=== PATIENT | female | born 1990 | race Caucasian/White ===

== ENCOUNTER → 2020-06-03 | Outpatient (CLI) | payer OTHER ==
--- NOTE | 2020-06-04 07:00 | PFTRPT ---
Height: 73.00 Inches Weight: 180.00 Lbs BSA: 2.06 Diagnosis: [id number] DATE OF PROCEDURE: 06/03/2020 ORDERED BY: RASHAD Castellano Spirometry: Pre and post bronchodilator study of excellent technical quality. Forced vital capacity normal. FEV1 out of proportion. Obstructive index is, therefore, reduced. Flow Volume Loop: Expiratory limb of the flow volume loop consistent with significant flow rate limitation. Only borderline bronchodilator response identified, but difficulty with that maneuver is suspected. Lung Volumes: Total lung capacity normal. Residual volume is in proportion. Diffusing Capacity: Diffusing capacity normal. Hemoglobin: Hemoglobin acceptable at 15.1. Airway Mechanics: Airway resistance and conductance are normal. IMPRESSION: Moderate obstructive ventilatory impairment with suspected bronchodilator response. Clinical correlation with the above will be necessary. [facility]
== END ==
LOC: M CARPUL 10:35
PROVIDERS: ATTEND Nurse Practitioner
DX: J45.30 Mild persistent asthma, uncomplicated (principal)

== ENCOUNTER → 2020-06-04 | Outpatient (CLI) | payer OTHER ==
--- NOTE | 2020-06-04 18:02 | REP ---
REASON: Suspect spontaneous . There are no priors for comparison. Transvesical and transvaginal imaging was obtained. The uterus measures 11.2 x 6.9 x 8.1 cm. Within the uterus, there is an anechoic structure with increased echoes surrounding it, consistent with a decidual reaction. Within the gestational sac, there is echogenic material, consistent with a pole, the mean crown-rump length measurement of which is consistent with a 7 week 6 day gestational age. Doppler interrogation of the pole shows no cardiac activity. Inferior and on the right of the gestational sac, there is a 1.9 x 0.9 x 3.1 cm sized area of decreased echoes. The ovaries are within normal limits for size, shape, and echo pattern. The right measures 3.4 x 1.9 x 2.8 cm and left measures 2.7 x 2.6 x 2.2 cm. The right ovarian RI is 0.44 and the left is 0.58. IMPRESSION: There is no evidence of cardiac activity seen in the 7 week 6 day gestational age, as described above. This is consistent with demise. In addition, there is a large subchorionic hemorrhage, as described above. Electronically Signed by Eagle Mcnamara DO 06/05/2020 11:22 A
== END ==
LOC: M RAD 14:37
PROVIDERS: ATTEND Nurse Practitioner Women's Health
DX: O03.9 Complete or unspecified spontaneous abortion without complication (principal)

== ENCOUNTER → 2020-06-24 | Emergency (ER) | payer OTHER ==
[~2020-06-24] MED LIST: ONDANSETRON 4MG/2ML VIAL As Ordered ONE; ONDANSETRON 4MG/2ML VIAL ONE; cefTRIAXone SOD 1GM VIAL (J0696 PER 250MG) As Ordered ONE; cefTRIAXone SOD 1GM VIAL (J0696 PER 250MG) ONE
[2020-07-23 11:06] LABS: APPEARANCE, URINE CLEAR (CLEAR); BILIRUBIN, URINE AUTO NEGATIVE (NEGATIVE); BLOOD, URINE BLOOD NEGATIVE (NEGATIVE); COLOR, URINE YELLOW (YELLOW); GLUCOSE, URINE (UA) AUTO NEGATIVE (NEGATIVE); KETONE, URINE AUTO NEGATIVE (NEGATIVE); LEUKOCYTE ESTERASE, URINE AUTO TRACE (NEGATIVE); NITRITE, URINE AUTO NEGATIVE (NEGATIVE); PROTEIN, URINE AUTO NEGATIVE (NEGATIVE); SPECIFIC GRAVITY URINE AUTO 1.014 (1.002-1.035); UROBILINOGEN, URINE AUTO 0.2 mg/dL (0.0-2.0)
[2020-07-23 11:07] LABS: BACTERIA, URINE AUTO NEGATIVE (NEGATIVE); MUCUS, URINE SMALL (NEGATIVE); RBC, URINE AUTO 157 /HPF (0-3); SQUAMOUS EPITHELIAL CELL UR AU 1 /HPF (0-6); WBC, URINE AUTO 8 /HPF (0-3)
[2020-07-23 11:23] LABS: BASO % 0.2 % (0.0-1.0); EOS # 0.1 10^3/uL (0.0-0.5); EOS % 0.5 % (0.0-3.0); HEMATOCRIT 35.3 % (36.0-47.0); HEMOGLOBIN 11.9 g/dl (12.0-15.5); LYMPH # 1.7 10^3/uL (1.5-5.0); LYMPH % 9.9 % (24.0-44.0); MEAN CORPUSCULAR HEMOGLOBIN 29.5 pg (27.0-33.0); MEAN CORPUSCULAR HGB CONC 33.7 g/dl (32.0-36.5); MEAN CORPUSCULAR VOLUME 87.4 fl (80.0-96.0); MONO % 5.6 % (0.0-5.0); NEUTROPHILS # 14.6 10^3/uL (1.5-8.5); NEUTROPHILS % 83.3 % (36.0-66.0); PLATELET COUNT, AUTOMATED 160 10^3/uL (150-450); RED BLOOD COUNT 4.04 10^6/uL (4.00-5.40); WHITE BLOOD COUNT 17.6 10^3/uL (4.0-10.0)
[2020-08-08 18:27] LABS: ALBUMIN 3.4 GM/DL (3.2-5.2); ALT/SGPT 15 U/L (12-78); BILIRUBIN,DIRECT < 0.1 MG/DL (0.0-0.2); BILIRUBIN,TOTAL 0.4 MG/DL (0.2-1.0); BLOOD UREA NITROGEN 12 MG/DL (7-18); CALCIUM LEVEL 9.1 MG/DL (8.5-10.1); CARBON DIOXIDE LEVEL 23 MEQ/L (21-32); CHLORIDE LEVEL 108 MEQ/L (98-107); CREATININE FOR GFR 0.77 MG/DL (0.55-1.30); GLOMERULAR FILTRATION RATE > 60.0 (>60); GLUCOSE, FASTING 80 MG/DL (70-100); HCG, SERUM QUANTITATIVE 1223 MIU/ML; LIPASE 37 U/L (73-393); POTASSIUM SERUM 4.3 MEQ/L (3.5-5.1); SODIUM LEVEL 136 MEQ/L (136-145); TOTAL PROTEIN 7.3 GM/DL (6.4-8.2)
== END | disposition home or self-care (01) ==
LOC: M ED 14:55
DX: O73.1 Retained portions of placenta and membranes, without hemorrhage (principal); J45.909 Unspecified asthma, uncomplicated; Z79.899 Other long term (current) drug therapy; Z88.5 Allergy status to narcotic agent
CPT/HCPCS: 76705; 76830; 76856; 80048; 80076; 81001; 83605; 83690; 84702; 85025; 86850; 86900; 86901; 87040; 87086; 93976; 96361; 96374; 96375; 99284; J0696; J2405; U0002

== ENCOUNTER 2020-06-26 13:28 | Day surgery (SDC) | payer OTHER ==
[~2020-06-26 13:28] MED LIST changes: -ONDANSETRON 4MG/2ML VIAL As Ordered ONE; -ONDANSETRON 4MG/2ML VIAL ONE; -cefTRIAXone SOD 1GM VIAL (J0696 PER 250MG) As Ordered ONE; -cefTRIAXone SOD 1GM VIAL (J0696 PER 250MG) ONE; +cefoTEtan INJ 1GM VIAL (S0074 PER 500MG) ONE
[2020-06-26] MEDS ORDERED: ACETAMINOPHEN 650 MG SUPP ONE (13:37)
[2020-06-26] MEDS ORDERED: fentaNYL 100 MCG/2 ML INJECTION (J3010) ONE (13:46)
[2020-06-26] MEDS ORDERED: dexameTHASONE 4 MG/ML 1ML VIAL (J1100 PER 1MG) ONE (13:46)
[2020-06-26] MEDS ORDERED: propofoL 200 MG/20 ML VIAL ONE (13:46)
[2020-06-26] MEDS ORDERED: ONDANSETRON 4MG/2ML VIAL ONE (13:46)
[2020-06-26] MEDS ORDERED: METOCLOPRAMIDE INJ 10MG/2ML VIAL (J2765 PER 1) ONE (13:46)
[2020-06-26] MEDS ORDERED: KETOROLAC 60MG 2ML VIAL ONE (13:46)
[2020-06-26] MEDS ORDERED: MIDAZOLAM INJ 2MG/2ML VIAL (J2250 PER 1MG) ONE (13:46)
[2020-06-26] MEDS ORDERED: LIDOCAINE 2% 100MG/5ML SDV (FOR ANES.) ONE (13:46)
[2020-06-26] MEDS ORDERED: OXYTOCIN INJ 10 UNITS/ML VIAL (J2590) ONE ×3 (13:54→13:55)
[2020-08-12 20:29] LABS: HEMATOCRIT 33.5 % (36.0-47.0); MEAN CORPUSCULAR HEMOGLOBIN 29.5 pg (27.0-33.0); MEAN CORPUSCULAR HGB CONC 32.8 g/dl (32.0-36.5); MEAN CORPUSCULAR VOLUME 89.8 fl (80.0-96.0); PLATELET COUNT, AUTOMATED 154 10^3/uL (150-450); RED BLOOD COUNT 3.73 10^6/uL (4.00-5.40)
--- NOTE | 2020-08-27 13:05 | RO ---
DATE OF OPERATION: 06/26/2020 PREOPERATIVE DIAGNOSIS: Retained products of conception, 14 weeks. POSTOPERATIVE DIAGNOSIS: Retained products of conception, 14 weeks. PROCEDURE: Suction curettage. OPERATION PERFORMED: Suction curettage. ANESTHESIA: General. ESTIMATED BLOOD LOSS: Less than 20 mL. SURGEON: Dr. Montoya After adequate time-out, prepped and draped in lithotomy position. Acetaminophen suppository 1300 mg per rectum. Sequentials in place. Patient had a previous fever, therefore was given 2 grams of cefotetan. Bladder was drained for 50 mL of clear urine. Weighted speculum in vagina. Single-toothed tenaculum on the anterior lip of the cervix. Uterus sounded to depth of 9 cm, retroverted, retroflexed. Was already dilated to a Hegar 12. Curved suction curette applied. Curettage until the cavity was smooth. Uterus was placed in anatomical position, well contracted under Pitocin. Patient is Rh positive. Does not require RhoGAM. Patient was sent to recovery in good condition. [facility]
[2020-09-14 10:04] LABS: BLOOD UREA NITROGEN 11 MG/DL (7-18); CALCIUM LEVEL 8.9 MG/DL (8.5-10.1); CARBON DIOXIDE LEVEL 25 MEQ/L (21-32); CHLORIDE LEVEL 110 MEQ/L (98-107); CREATININE FOR GFR 0.76 MG/DL (0.55-1.30); GLOMERULAR FILTRATION RATE > 60.0 (>60); GLUCOSE, FASTING 79 MG/DL (70-100); HCG, SERUM QUANTITATIVE 443 MIU/ML; POTASSIUM SERUM 4.1 MEQ/L (3.5-5.1); SODIUM LEVEL 141 MEQ/L (136-145)
== END 2020-06-26 16:45 | disposition home or self-care (01) ==
LOC: M SDC 13:28
PROVIDERS: ATTEND Obstetrics & Gynecology
DX: O02.1 Missed abortion (principal)
CPT/HCPCS: 59820; 80048; 84702; 85027; 88305; J1100; J1885; J2250; J2405; J2590; J2765; J3010

== ENCOUNTER → 2020-12-21 | Outpatient (REF) | payer OTHER | LOC: M WUC 13:25 | PROVIDERS: ATTEND Physician Assistant | DX: N39.0 Urinary tract infection, site not specified (principal) ==